=== PATIENT | female | born 1995 | race American Indian/Alaskan Native ===

== ENCOUNTER 2019-06-07 11:58 | Emergency (ER) | payer SELFPAY | END 2019-06-07 16:48 | disposition home or self-care (01) | LOC: ED 11:58 | CPT/HCPCS: 81001; 81025; 87210; 87591 ==

== ENCOUNTER 2019-11-27 17:50 | Emergency (ER) | payer SELFPAY ==
[2019-11-27 18:36] VITALS: BP 113/77
--- NOTE | 2019-11-27 19:10 | Emergency Department Report ---
Chief Complaint: Urogenital-Female Stated Complaint: YEAST INFECTION Time Seen by Provider: 11/27/19 19:06 - HPI History of Present Illness: Patient is a 24-year-old female who states she has a "yeast infection." states she has thick white discharge. she states there is no odor. no abd, fever, no n/v. no pelvic pain. no urinary sx. PMHx none. no hx of DM. no allergies to meds. LNMP: 3 weeks ago Vitals are normal Patient is presenting for what she states is a yeast infection She states that she has thick white discharge and some mild itching She denies any abdominal pain, pelvic pain, fever, dysuria She does not have any clinical symptoms of PID or UTI Discussed [id number] medication with patient Discussed for patient to follow-up with a primary care doctor for further evaluation and management Discussed in detail with patient strict return precautions Medical screening examination performed and there is no threat to life or limb at this time - Exam Vital Signs: Vital Signs 11/27/19 18:32 Temperature 98.3 F Pulse Rate 71 Respiratory 16 Rate Blood Pressure 113/77 O2 Sat by Pulse 100 Oximetry MSE screening note: Focused history and physical exam performed. ED Disposition for MSE Clinical Impression: Vaginitis Qualifiers: Chronicity: acute Qualified Code(s): N76.0 - Acute vaginitis Disposition: MED SCREENING EXAM-LEFT Is pt being admited?: No Does the pt Need Aspirin: No Condition: Stable Instructions: Vulvovaginal Candidiasis (ED) Additional Instructions: please use monistat 7 day. please follow up with a primary care doctor. return to the emergency room for any new or worsening symptoms Referrals: BETITO MA MD [Primary Care Provider] - 3-5 Days ELIDA FERRER MD [Staff Physician] - 3-[address] [facility] [place] [Outside] - 3-5 Days [facility] [Outside] - 3-5 Days Time of Disposition: 19:08 Print Language: CENTRAL AFRICAN
== END 2019-11-27 19:13 | disposition left against medical advice (07) ==
LOC: ED 17:50
DX: N89.8 Other specified noninflammatory disorders of vagina (principal); Z53.21 Procedure and treatment not carried out due to patient leaving prior to being seen by health care provider

== ENCOUNTER 2020-06-25 11:19 | Emergency (ER) | payer SELFPAY ==
[2020-06-25 11:35] VITALS: BP 101/59
--- NOTE | 2020-06-25 11:39 | Emergency Department Report ---
Chief Complaint: Urogenital-Female Stated Complaint: VAGINAL DISCHARGE/ODOR X 5 DAYS Time Seen by Provider: 06/25/20 11:36 - HPI History of Present Illness: Patient is a 25-year-old female presents emergency room complaints of watery vaginal discharge that began 5 days ago. She states that she has a fishy odor. She denies any dysuria, abdominal pain, pelvic pain, hematuria, vaginal bleeding, itching, burning. Patient denies any past medical history. No allergies medications. She states that she does not currently have a [employer]. She states her last menstrual cycle was 2 weeks ago. Vitals are normal On exam: Non toxic appearing, no acute distress atraumatic, normocephalic normal appearance of the eyes, EOMI, no periorbital edema or ecchymosis moist mucus membranes no respiratory distress, no accessory muscle use no abd ttp, no guarding, no rebound, no rigidity, abd is soft non tender non distended A&O x4, no focal neuro deficit skin is warm, dry, intact Patient is presenting for vaginal discharge for 5 days She denies any dysuria, abdominal pain, pelvic pain, hematuria, vaginal bleeding, itching, burning. Her symptoms could likely be related to bacterial vaginosis She has no clinical signs or symptoms of UTI or PID advised pt Please use boric acid suppositories [id number]. Follow-up with a clinic, health department, [employer] for full examination. Return to emergency room immediately for any new or worsening. Discussed very strict return precautions with patient Medical screening examination performed there is no threat to life or limb at this time - Exam Vital Signs: Vital Signs 06/25/20 11:34 Temperature 98.2 F Pulse Rate 60 Respiratory 20 Rate Blood Pressure 101/59 O2 Sat by Pulse 100 Oximetry MSE screening note: Focused history and physical exam performed. ED Disposition for MSE Clinical Impression: Vaginitis Qualifiers: Chronicity: acute Qualified Code(s): N76.0 - Acute vaginitis Disposition: MED SCREENING EXAM-LEFT Is pt being admited?: No Does the pt Need Aspirin: No Condition: Stable Instructions: Bacterial Vaginosis, Vaginitis Additional Instructions: Please use boric acid suppositories [id number]. Follow-up with a clinic, health department, [employer] for full examination. Return to emergency room immediately for any new or worsening. clinic: [facility] [employer] Address: [address] [place] [address], [place] [address] Referrals: ELIDA FERRER MD [Staff Physician] - 3-[address] [facility] [Provider Group] - 3-5 Days [facility], [LAB/CONTRACT] - 3-5 Days [facility] [Outside] - 3-5 Days [facility] [Provider Group] - 3-5 Days Time of Disposition: 11:41 Print Language: CZECH
== END 2020-06-25 11:57 | disposition left against medical advice (07) ==
LOC: ED 11:19
DX: N89.8 Other specified noninflammatory disorders of vagina (principal); Z53.21 Procedure and treatment not carried out due to patient leaving prior to being seen by health care provider